=== PATIENT | female | born 1990 | race American Indian/Alaskan Native ===

== ENCOUNTER 2022-03-02 16:31 | Emergency (ER) | payer SELFPAY ==
[2022-03-02 17:43] LABS: Basophils # (Auto) 0.1 K/mm3 (0.0-0.1); Basophils % (Auto) 0.6 % (0.0-1.8); Eosinophils # (Auto) 0.2 K/mm3 (0.0-0.4); Eosinophils % (Auto) 1.8 % (0.0-4.3); Hematocrit 40.8 % (30.3-42.9); Hemoglobin 12.9 gm/dl (10.1-14.3); Lymphocytes # (Auto) 1.2 K/mm3 (1.2-5.4); Lymphocytes % (Auto) 9.5 % (13.4-35.0); Mean Corpuscular HGB Conc 32 % (30-34); Mean Corpuscular Volume 81 fl (79-97); Monocytes # (Auto) 0.6 K/mm3 (0.0-0.8); Monocytes % (Auto) 4.9 % (0.0-7.3); Platelet Count 254 K/mm3 (140-440); Red Blood Count 5.04 M/mm3 (3.65-5.03)
[2022-03-02 18:57] LABS: Bacteria,Urine 3+ /HPF (Negative); Hyaline Casts,Urine 1 /LPF
[2022-03-02 19:38] LABS: Color,Urine Straw (Yellow)
[2022-03-02] MEDS ORDERED: LIDOCAINE-MPF (1%) 10 MG/1 ML VIAL 5 ML INFILTRATI ONE (21:30)
[2022-03-02] MEDS ORDERED: ACETAMINOPHEN 500 MG TAB PO ONE (21:30)
[2022-03-02 22:19] LABS: Alanine Aminotransferase 24 units/L (7-56); Albumin 4.2 g/dL (3.9-5); Blood Urea Nitrogen 11 mg/dL (7-17); Hemolysis Index 14
[2022-03-02 22:24] LABS: BUN/Creatinine Ratio 18
--- NOTE | 2022-03-02 22:37 | Ultrasound Report ---
US OB <= 14 weeks fetus INDICATION / CLINICAL INFORMATION: vaginal bleeding, 7 weeks gestation beta hCG 2067 COMPARISON: None available. TECHNIQUE: Using a transcutaneous probe, multiple grayscale, color Doppler, and spectral Doppler imag es of the uterus and fetus were captured and stored. FINDINGS: The uterus measures 7.3 x 5.0 x 6.2 cm. Endometrial stripe is thickened measuring 10.5 mm. There is n o ultrasound evidence of an intrauterine gestational sac. The right ovary measures 2.6 x 2.0 x 2.3 cm. The right ovary is otherwise unremarkable. The left ovary measures 3.4 x 2.1 x 2.2 cm. The left ovary is otherwise unremarkable. Urinary bladder is not well visualized secondary to poor distention. IMPRESSION: 1. No ultrasound evidence of intrauterine gestational sac. Short-term follow-up and/or surveillance o f beta-HCG recommended. Signer Name: Steffen Parks II, MD Signed: 03/02/2022 10:32 PM Workstation Name: [id number]
--- NOTE | 2022-03-02 22:47 | Emergency Department Report ---
ED Female HPI - General Chief complaint: Vaginal Bleeding Stated complaint: POSSIBLE MISCARRIAGE Source: patient Mode of arrival: Ambulatory Limitations: No Limitations - History of Present Illness Initial comments: Patient is a A0 31-year-old -Portuguese female with no past medical history was approximately 6 to 7 weeks gestation presents to the ED with complaint of acute onset persistent pelvic pain and heavy vaginal bleeding for the last 2 days. Patient states that the bleeding initially was mild but increasingly has been heavier in the last 24 hours. Patient denies fever, chills, vaginal discharge, nausea and vomiting or diarrhea, low back pain, chest pain or shortness of breath or headache and dizziness. MD Complaint: vaginal bleeding, pelvic pain -: Gradual, days(s) (2) Location: suprapubic, other (vaginal) Severity: moderate Severity scale (0 -10): 5 Quality: cramping, dull Consistency: constant Improves with: none Worsens with: none Are you Now?: Yes (Approx 7 weeks gestation) Associated Symptoms: denies other symptoms, vaginal bleeding, abdominal pain (suprapubic). denies: vaginal discharge, nausea/vomiting, fever/chills, headaches, dysuria, hematuria, rash, seizure, shortness of breath, syncope, weakness - Related Data Sexually active: Yes : 3 Para: 2 A: 0 Previous Rx's Medication Instructions Recorded Last Taken Type Acetaminophen [Tylenol] 500 mg PO Q6HR PRN #30 tablet 03/02/22 Unknown Rx cephALEXin [Keflex] 500 mg PO Q6HR #40 capsule 03/02/22 Unknown Rx Allergies Allergy/AdvReac Type Severity Reaction Status Date / Time No Known Allergies Allergy Verified 03/02/22 17:12 ED Review of Systems ROS: Stated complaint: POSSIBLE MISCARRIAGE Other details as noted in HPI Constitutional: denies: chills, fever Eyes: denies: eye pain, eye discharge, vision change ENT: denies: ear pain, throat pain Respiratory: denies: cough, shortness of breath, wheezing Cardiovascular: denies: chest pain, palpitations Endocrine: no symptoms reported Gastrointestinal: abdominal pain (suprapubic). denies: nausea, vomiting, diarrhea Genitourinary: abnormal menses (vaginal bleeding). denies: urgency, dysuria, discharge Musculoskeletal: denies: back pain, joint swelling, arthralgia Skin: denies: rash, lesions Neurological: denies: headache, weakness, paresthesias Psychiatric: denies: anxiety, depression Hematological/Lymphatic: denies: easy bleeding, easy bruising ED Past Medical Hx - Medications Home Medications: Home Medications Medication Instructions Recorded Confirmed Last Taken Type Acetaminophen [Tylenol] 500 mg PO Q6HR PRN #30 tablet 03/02/22 Unknown Rx cephALEXin [Keflex] 500 mg PO Q6HR #40 capsule 03/02/22 Unknown Rx ED Physical Exam - General Limitations: No Limitations General appearance: alert, in no apparent distress - Head Head exam: Present: atraumatic, normocephalic, normal inspection - Eye Eye exam: Present: normal appearance, PERRL, EOMI Pupils: Present: normal accommodation - ENT ENT exam: Present: normal exam, normal orophraynx, mucous membranes moist, TM's normal bilaterally, normal external ear exam - Neck Neck exam: Present: normal inspection, full ROM. Absent: tenderness, meningismus - Respiratory Respiratory exam: Present: normal lung sounds bilaterally. Absent: respiratory distress, wheezes, rales, rhonchi, chest wall tenderness, accessory muscle use, decreased breath sounds, prolonged expiratory - Cardiovascular Cardiovascular Exam: Present: regular rate, normal rhythm, normal heart sounds. Absent: systolic murmur, diastolic murmur, rubs, gallop - GI/Abdominal GI/Abdominal exam: Present: soft, tenderness (palpable mild suprapubic tenderness), normal bowel sounds. Absent: guarding, rebound, rigid, hyperactive bowel sounds, hypoactive bowel sounds - Bi-manual exam: Present: other (Pelvic exam deferred at this time) - Extremities Exam Extremities exam: Present: normal inspection, full ROM, normal capillary refill - Back Exam Back exam: Present: normal inspection, full ROM. Absent: tenderness, CVA tenderness (R), CVA tenderness (L), muscle spasm, paraspinal tenderness, vertebral tenderness - Neurological Exam Neurological exam: Present: alert, oriented X3, CN II-XII intact, normal gait, reflexes normal - Psychiatric Psychiatric exam: Present: normal affect, normal mood - Skin Skin exam: Present: warm, dry, intact, normal color. Absent: rash ED Course Vital Signs 03/02/22 17:11 Temperature 98.3 F Pulse Rate 82 Respiratory 14 Rate Blood Pressure 141/74 [Right] O2 Sat by Pulse 98 Oximetry ED Medical Decision Making - Lab Data Result diagrams: 03/02/22 17:14 03/02/22 21:32 - Radiology Data Radiology results: report reviewed, image reviewed [facility] [address] [place] [address] Ultrasound Report Signed Patient: ADAM VILLALOBOS MR#: [id number] : 1990 Acct:[id number] Age/Sex: 31 / F ADM Date: 03/02/22 Loc: ED Attending Dr: Ordering Physician: HUANG JUÁREZ Date of Service: 03/02/22 Procedure(s): US OB <= 14 weeks fetus Accession Number(s): [id number] cc: HUANG JUÁREZ US OB <= 14 weeks fetus INDICATION / CLINICAL INFORMATION: vaginal bleeding, 7 weeks gestation beta hCG 2067 COMPARISON: None available. TECHNIQUE: Using a transcutaneous probe, multiple grayscale, color Doppler, and spectral Doppler images of the uterus and fetus were captured and stored. FINDINGS: The uterus measures 7.3 x 5.0 x 6.2 cm. Endometrial stripe is thickened measuring 10.5 mm. There is no ultrasound evidence of an intrauterine gestational sac. The right ovary measures 2.6 x 2.0 x 2.3 cm. The right ovary is otherwise unremarkable. The left ovary measures 3.4 x 2.1 x 2.2 cm. The left ovary is otherwise unremarkable. Urinary bladder is not well visualized secondary to poor distention. IMPRESSION: 1. No ultrasound evidence of intrauterine gestational sac. Short-term follow-up and/or surveillance of beta-HCG recommended. Signer Name: Kayy Peterson II, MD Signed: 03/02/2022 10:32 PM Workstation Name: [id number] Transcribed By: SAMIA Dictated By: KAYY PETERSON II, MD Electronically Authenticated By: KAYY PETERSON II, MD Signed Date/Time: 03/02/222231 DD/ 29 TD/TT: - Medical Decision Making This is a A0 31-year-old -Portuguese female with no past medical history was approximately 6 to 7 weeks gestation presents to the ED with complaint of acute onset persistent pelvic pain and heavy vaginal bleeding for the last 2 days. Patient states that the bleeding initially was mild but increasingly has been heavier in the last 24 hours. In the ED, patient is alert and oriented x3 and is not in any distress. All lab test results were reviewed and showed acute leukocytosis of 12,600, hCG quant of 2048 and significant urine tract infection in urinalysis. Transvaginal ultrasound showed no ultra sound evidence of intrauterine gestational sac. Short-term follow-up and/or surveillance of beta-HCG recommended. Patient was treated for pain in the ED and also treated with Rocephin 1 g intramuscular injection for UTI in the ED. Patient was discharged home on oral antibiotics and advised to take Tylenol as needed for pain, and to maintain a complete pelvic rest and to follow-up with her [employer] physician within 48 hours or return to the ED within 48 hours for serial hCG quant studies repeat to confirm the viability of the Or complete miscarriage. Patient was advised to return to the ED immediately if symptoms get worse. - Differential Diagnosis Threatened miscarriage; ectopic ; UTI; ovarian cyst; subcho.bleed Critical care attestation.: If time is entered above; I have spent that time in minutes in the direct care of this critically ill patient, excluding procedure time. ED Disposition Clinical Impression: Threatened miscarriage in early , Acute urinary tract infection, Incomplete miscarriage, Vaginal bleeding in patient after first trimester Disposition: 01 HOME / SELF CARE / HOMELESS Is pt being admited?: No Does the pt Need Aspirin: No Condition: Stable Instructions: Threatened Miscarriage, [id number], Miscarriage, [id number], Urinary Tract Infection, Adult, [id number], Vaginal Bleeding During , First Trimester, [id number]-[id number], Managing Loss Additional Instructions: All lab test results were reviewed and are all nonactionable with an hCG quant of 8 and significant urinary tract infection in urinalysis. The transvaginal ultrasound showed no ultrasound evidence of intrauterine gestational sac. It is therefore recommended that a short-term follow-up and/or surveillance of beta-HCG within 48 hours to confirm the viability of the or complete miscarriage. So either follow-up with your [employer] physician in 48 hours or return to the ED for further evaluation and repeat of the hCG quant to ascertain viability of the . Prescriptions: Acetaminophen [Tylenol] 500 mg PO Q6HR PRN #30 tablet PRN Reason: Pain , Severe (7-10) cephALEXin [Keflex] 500 mg PO Q6HR #40 capsule Referrals: SHIRA MALIK MD [Staff Physician] - 3-5 Days Forms: Work/School Release Form(ED) Time of Disposition: 22:51 Print Language: SAMI
[2022-03-03 00:43] VITALS: BP 142/77
== END 2022-03-03 00:43 | disposition home or self-care (01) ==
LOC: ED 16:31
DX: O20.0 Threatened abortion (principal); O23.41 Unspecified infection of urinary tract in pregnancy, first trimester; Z3A.01 Less than 8 weeks gestation of pregnancy
CPT/HCPCS: 36415; 76801; 80053; 81001; 84702; 85025; 86900; 86901; 87076; 87086; 87186; 96372; 99284; J0696; J3490